=== PATIENT | female | born 1955 | race Caucasian/White ===

== ENCOUNTER 2016-12-22 07:00 | Inpatient (IN) | payer OTHER ==
[~2016-12-22] VITALS: Ht 167.6 cm; Wt 97.4 kg
[2017-01-10] MEDS ORDERED: GLUCTAB6 PO (09:40)
[2017-01-10] MEDS ORDERED: SOMA250T PO (09:40)
[2017-01-10] MEDS ORDERED: NORC5TAB PO (09:40)
[2017-01-10] MEDS ORDERED: OMEGCAP PO (09:40)
[2017-01-10] MEDS ORDERED: XANA1TAB2 PO (09:40)
[2017-01-26 06:00] VITALS: BP 146/93; PULSE 78; RESP 16; TEMP 98.2; O2SAT 95
[2017-01-26] MEDS ORDERED: DEXAMETHASONE SOD PHOS 4 MG/ML VIAL ONE (07:33)
[2017-01-26] MEDS ORDERED: VANCOMYCIN HCL 1000 MG VIAL ONE (07:34)
[2017-01-26] MEDS ORDERED: ceFAZolin 2 GM PREMIX 50 ML ONE (07:34)
[2017-01-26] MEDS ORDERED: ceFAZolin 2 GM PREMIX 50 ML IV SCH (07:45)
[2017-01-26] MEDS ORDERED: VANCOMYCIN 1000 MG/NS 250 ML (for <70 kg) IV SCH ×2 (07:45)
[2017-01-26] MEDS ORDERED: TRANEXAMIC ACID IV SCH (07:45)
[2017-01-26] MEDS ORDERED: POVIDONE IODINE 7.5% SCRUB 118 ML BOTTLE TOPICAL SCH (07:45)
[2017-01-26] MEDS ORDERED: DEXAMETHASONE SOD PHOS 20 MG/5 ML VIAL IV SCH (07:45)
[2017-01-26] MEDS ORDERED: ROPIVACAINE PERI-ARTICULAR INJECTION. P-ARTICULR SCH ×5 (07:45)
[2017-01-26] MEDS ORDERED: SODIUM CHLORIDE 0.9% IV SCH (07:45)
[2017-01-26] MEDS ORDERED: GENTAMICIN SULFATE 80 MG/2 ML VIAL ONE (08:15)
[2017-01-26] MEDS ORDERED: GENTAMICIN SULFATE 80 MG/2 ML VIAL IRRIGATION ONE (09:29)
[2017-01-26] MEDS: SODIUM CHLOR 0.9% 1000 ML INJ 1,000 ML IV SCH ×2 (10:20→21:56)
[2017-01-26] MEDS ORDERED: ALPRAZolam 1 MG TAB PO PRN (10:30)
[2017-01-26] MEDS ORDERED: ACETAMINOPHEN/HYDROcodone 325 MG/10 MG TAB PO PRN (10:30)
[2017-01-26] MEDS ORDERED: MAGNESIUM HYDROXIDE SUSP 30 ML CUP PO PRN (10:30)
[2017-01-26] MEDS ORDERED: BISACODYL 10 MG SUPP RECTAL PRN (10:30)
[2017-01-26] MEDS ORDERED: ALUMINUM/MAGNESIUM/SIMETH 30 ML CUP PO PRN (10:30)
[2017-01-26] MEDS ORDERED: NALOXONE HCL 0.4 MG/ML AMP IV PRN (10:30)
[2017-01-26] MEDS ORDERED: diphenhydrAMINE HCL 50 MG/ML VIAL IV PRN (10:30)
[2017-01-26] MEDS ORDERED: Post-op Orders (for Pharmacy) MISC XX ONE (10:30)
[2017-01-26] MEDS ORDERED: ONDANSETRON HCL 4 MG/2 ML VIAL IVP PRN (10:30)
[2017-01-26] MEDS ORDERED: MORPHINE SULFATE 4 MG/ML INJ IV PUSH PRN (10:30)
[2017-01-26] MEDS ORDERED: ZOLPIDEM TARTRATE 5 MG TAB PO PRN (10:30)
[2017-01-26] MEDS ORDERED: SODIUM CHLORIDE 0.9% FLUSH 5 ML FLUSH IVF PRN (10:30)
--- NOTE | 2017-01-26 10:30 | PD.OP ---
cc: Rafal Cristina MD Operative Report Date of Surgery: Jan 26, 2017 Preoperative Diagnosis: Right knee severe arthritis Postoperative Diagnosis: Same Procedure: Right total knee arthroplasty Anesthesia: Adductor canal block and general Surgeon: Rafal Cristina Wind Operations Manager(s): YANETH Acuna The surgical procedure was assisted by my Advanced Registered Nurse Practitioner. My OUTREACH WORKER presence was necessary throughout this case for the manipulation and positioning of the surgical extremity. My OUTREACH WORKER was assisting me throughout the duration of this procedure. The skill set of an Advance Registered Nurse Practitioner was medically necessary to complete this procedure. During the surgical case, the manager surgical was working at the back table and the Advance Registered Nurse Practitioner was directly assisting me. Operation and Findings: IMPLANTS: DePuy Attune: Patella: size 32. Femur, posterior stabilized size 6. Tibia, rotating platform size 5. Tibial insert, rotating platform, posterior stabilized size 5 mm thickness. ESTIMATED BLOOD LOSS: 100 cc TOURNIQUET TIME: 38 minutes at 250 mmHg pressure. JUSTIFICATION FOR PROCEDURE: The patient has end-stage osteoarthritis to the knee. There is an attached conservative measures pathway form in the chart that describes the nonoperative measures that were undertaken prior to consideration of surgical management. The patient understood the risks and benefits of surgical management. See my office notes for further details PROCEDURE: The patient was brought back to the operative theatre. Adequate anesthesia was obtained. The patient received intravenous vancomycin and Ancef. The lower extremity was prepped and draped in the usual sterile fashion.The leg was exsanguinated, the tourniquet was raised. A standard anterior incision was performed followed by medial parapatellar arthrotomy was performed. End-stage arthritis was identified. Osteotomy of the patella was performed. We drilled holes for the patella. We trialed the patella component. We placed an intramedullary guide into the distal femur. We ultimately resected 12 mm off of the distal femur in 5 degrees of valgus. The remnants of the ACL and PCL were resected. Osteotomy of the proximal tibia was performed, resecting 5 mm off of the medial side. This was done with 3 degrees of posterior slope using an extramedullary guide. The distal end of the guide was placed in the mid aspect of the ankle. The femur was sized, and four chamfer cuts were completed in 3 of external rotation. We then cut the central box in the distal femur to replace the PCL. We resected the remnants of the menisci and removed osteophytes off of the femur and tibia. We then trialed the knee. We punched the tibia for the keel, and then used standard technique to cement in components. Excess cement was removed. We trialed the knee again and the final polyethylene thickness was chosen to provide extension to 0 degrees, and flexion of 140 degrees to gravity. The ligaments were appropriately balanced. Lateral release was necessary to obtain excellent patellofemoral tracking. The tourniquet was released and adequate hemostasis was obtained. An intra- articular injection of a ropivacaine cocktail was injected. The posterior knee was inspected for excess cement, which was removed. The final polyethylene was put into position after thorough irrigation. We then closed deep fascia with a #2 Stratafix followed by skin with 2-0 Vicryl followed by radha. Postop plan is to weight-bear as tolerated. DVT prophylaxis will be performed with Ramon, BELIA walter, early mobilization, and Lovenox followed by aspirin. Rafal Cristina MD Jan 26, 2017 10:30
[2017-01-26] MEDS ORDERED: HYDR-3366 PO (10:31)
[2017-01-26] MEDS ORDERED: DO NOT ADM ANY ANTICOAGULANT DRUGS PRN (11:00)
[2017-01-26] MEDS ORDERED: fentaNYL CITRATE 250 MCG/5 ML AMP ONE (11:00)
[2017-01-26] MEDS ORDERED: *morphine SULFATE 8 MG/ML PERIprocedure ONLY ONE ×3 (11:03→12:01)
--- NOTE | 2017-01-26 11:29 | RADRPT ---
EXAM DATE/TIME: 01/26/2017 10:58 [facility] COMPARISON: No previous studies available for comparison. INDICATIONS : Post-op right knee. MEDICAL HISTORY : Hypertension. SURGICAL HISTORY : None. ENCOUNTER: Initial ACUITY: 1 day PAIN SCORE: 10/10 LOCATION: Right Knee. FINDINGS: AP and lateral views of the knee following arthroplasty reveals a prosthesis in anatomic alignment. F racture is not appreciated. Surgical drain is evident CONCLUSION: Status post total knee arthroplasty. Neymar Odonnell MD FACR Board Certified Radiologist. This report was verified electronically.
[2017-01-26] MEDS ORDERED: TRANEXAMIC ACID INJ 770 MG in SODIUM CHLORIDE 0.9% INJ 100 ML IV SCH (11:30)
[2017-01-26] MEDS ORDERED: BUPIVACAINE HCL PF 0.5% 30 ML VIAL NERV BLOCK ONE (11:53)
[2017-01-26 14:00] VITALS: BP 120/73; PULSE 81; RESP 18; TEMP 96.1; O2SAT 97
[2017-01-26] MEDS ORDERED: PROPOFOL 200 MG/20 ML AMP IV ONE (14:03)
[2017-01-26] MEDS ORDERED: PHENYLEPH/NS 1000 MCG/10 ML SYR IV ONE (14:04)
[2017-01-26] MEDS ORDERED: LACTATED RINGER'S 1000 ML INJ 1,000 ML IV ONE (14:04)
[2017-01-26] MEDS ORDERED: ONDANSETRON HCL 4 MG/2 ML VIAL IV PUSH ONE (14:04)
[2017-01-26] MEDS ORDERED: NEOSTIGMINE 3 MG/3 ML SYR IV ONE (14:04)
--- NOTE | 2017-01-26 16:03 | HHI.DCPOC ---
Discharge Care Plan Diagnosis: (1) Status post total knee replacement, right (2) Primary localized osteoarthrosis, lower leg Your Health Problems Are: Difficulty with ADL Goals to Promote Your Health * To prevent worsening of your condition and complications * To maintain your health at the optimal level Directions to Meet Your Goals Take your medications as prescribed Follow your dietary instruction Follow activity as directed Keep your appointments as scheduled Take your immunizations and boosters as scheduled If your symptoms worsen call your PCP, if no PCP go to Urgent Care Center or Emergency Room Smoking is Dangerous to Your Health. Avoid second hand smoke Call the 24-hour hour crisis hotline for domestic abuse at Dl Leary Jan 26, 2017 16:03
--- NOTE | 2017-01-26 16:04 | HHI.FF ---
Face to Face Verification Diagnosis: (1) Primary localized osteoarthrosis, lower leg (2) Status post total knee replacement, right Physical Therapy Gait training, Transfer training, bed to chair Knee: Total knee Right LE Weight Bearing: WB as tolerated Right LE Range of Motion: Active ROM Nursing Nursing: Gary teaching, Dressing changes Dressing Changes: Daily dressing change I have seen patient Elda Cheatham on 01/26/17. My clinical findings support the need for the requested home health care services because: Limited ability to care for self High risk of falls I certify that my clinical findings support that this patient is homebound because: Post-op weakness Unsteady gait/balance Dl Leary Jan 26, 2017 16:04
[2017-01-26] MEDS ORDERED: WALKER WHEELS/F1 MIS (16:05)
[2017-01-26] MEDS ORDERED: COMMODE 3-IN-11 MIS (16:05)
[2017-01-26] MEDS ORDERED: CPMMACHINE (16:05)
[2017-01-26 16:17] VITALS: BP 137/77; PULSE 76; RESP 17; TEMP 97.7
[2017-01-26] MEDS: ACETAMINOPHEN/HYDROcodone 325 MG/10 MG TAB PO PRN ×2 (17:51→21:55)
[2017-01-26] MEDS ORDERED: PROMETHAZINE HCL 25 MG TAB PO PRN (18:30)
[2017-01-26 20:40] VITALS: BP 171/78; PULSE 78; RESP 17; TEMP 96.9; O2SAT 96
[2017-01-26] MEDS: SODIUM CHLORIDE 0.9% FLUSH 5 ML FLUSH IVF SCH (21:00)
[2017-01-27 00:48] VITALS: BP 96/54; PULSE 78; RESP 17; TEMP 97; O2SAT 95
[2017-01-27 04:26] VITALS: BP 122/71; PULSE 77; RESP 17; TEMP 96.9; O2SAT 96
[2017-01-27 05:56] LABS: HEMATOCRIT 30.9 % (35.0-46.0); MEAN CELL VOLUME 88.6 FL (80.0-100.0); MEAN CORPUSCULAR HEMOGLOBIN 28.9 PG (27.0-34.0); MEAN CORPUSCULAR HGB CONC 32.7 % (32.0-36.0); PLATELET COUNT 142 TH/MM3 (150-450); RED BLOOD COUNT 3.49 MIL/MM3 (4.00-5.30); RED CELL DISTRIBUTION WIDTH 14.1 % (11.6-17.2); REVIEW FLAG FINAL; WHITE BLOOD COUNT 10.6 TH/MM3 (4.0-11.0)
[2017-01-27] MEDS: SODIUM CHLOR 0.9% 1000 ML INJ 1,000 ML IV SCH ×2 (06:25→15:43)
[2017-01-27] MEDS: ACETAMINOPHEN/HYDROcodone 325 MG/10 MG TAB PO PRN ×4 (06:42→17:58)
[2017-01-27] MEDS ORDERED: DEXAMETHASONE SOD PHOS 20 MG/5 ML VIAL IV ONE (07:45)
[2017-01-27 08:00] VITALS: BP 129/61; PULSE 80; RESP 18; TEMP 99.3; O2SAT 95
[2017-01-27] MEDS: SODIUM CHLORIDE 0.9% FLUSH 5 ML FLUSH IVF SCH (08:01)
[2017-01-27 08:53] VITALS: O2SAT 99
[2017-01-27] MEDS ORDERED: ENOXAPARIN SODIUM 40 MG/0.4 ML SYRINGE SQ SCH (10:00)
[2017-01-27 12:00] VITALS: BP 135/76; PULSE 76; RESP 18; TEMP 97.1; O2SAT 93
--- NOTE | 2017-01-27 12:05 | PD.ORT.PN ---
Subjective Post Op Day #: 1 Subjective Remarks Patient OOB in chair with minimal pain to the right knee. Patient requesting to go home today. Objective Vitals Vital Signs Date Time Temp Pulse Resp B/P Pulse Ox O2 Delivery O2 Flow Rate FiO2 01/27/17 08:53 99 21 01/27/17 08:00 99.3 80 18 129/61 95 01/27/17 07:01 Room Air 01/27/17 04:26 96.9 77 17 122/71 96 01/27/17 00:48 97.0 78 17 96/54 95 01/26/17 20:40 96.9 78 17 171/78 96 01/26/17 16:17 97.7 76 17 137/77 01/26/17 14:00 96.1 81 18 120/73 97 01/26/17 13:48 Nasal Cannula 2.00 01/26/17 13:30 98.4 01/26/17 13:00 76 17 109/69 98 Nasal Cannula 2 01/26/17 12:45 89 17 111/73 98 Nasal Cannula 2 01/26/17 12:30 90 17 140/74 98 Nasal Cannula 2 01/26/17 12:15 92 17 139/74 98 Nasal Cannula 2 01/26/17 12:00 91 17 139/78 98 Nasal Cannula 2 I/O 01/26/17 01/26/17 01/26/17 01/27/17 01/27/17 01/27/17 07:00 15:00 23:00 07:00 15:00 23:00 Intake Total 1450 ml 240 ml 240 ml Output Total 700 ml 450 ml 500 ml Balance 750 ml -210 ml -260 ml Intake Oral 240 ml 240 ml IV Total 250 ml Other 1200 ml Output Urine Total 700 ml 450 ml 500 ml # Bowel Movements 0 0 Result Diagram: 01/27/17 0508 Procedures Right TKA Objective Remarks The patient's dressing was changed today with scant serosanguineous drainage. Incision is well approximated with surgical clips intact. No redness or s/s of infection. EHL/TA/G intact. 2+ pedal pulse. No calf tenderness or swelling. Minimal swelling. + SILT. Assessment & Plan Ortho Post Op Day #: 1 Problem List: Assessment and Plan POD #1: Right TKA 1. WBAT RLE 2. Lovenox followed by ASA for DVT prophylaxis 3. Ice to the right knee PRN 4. Stable for discharge home with home health today. Dl Leary Jan 27, 2017 12:05
[2017-01-27 16:00] VITALS: BP 144/78; PULSE 76; RESP 18; TEMP 98.9; O2SAT 93
[2017-01-27] MEDS ORDERED: DOCUSATE SODIUM 100 MG CAP PO SCH (21:00)
[2017-01-27] MEDS ORDERED: MULTIVITAMINS/MINERALS THERAPEUTIC TAB PO SCH (21:00)
--- NOTE | 2017-01-31 13:49 | HHI.DS ---
Discharge Summary Admission Date Jan 26, 2017 at 05:44 Discharge Date: Jan 27, 2017 Admitting Diagnosis Primary localized osteoarthritis, lower leg Status post total knee replacement, RIGHT Diagnosis: (1) Primary localized osteoarthrosis, lower leg Diagnosis: Principal (2) Status post total knee replacement, right Diagnosis: Principal Procedures Right TKA Brief History This is a 61 year old female patient with severe osteoarthritis of the RIGHT knee. CBC/BMP: 01/27/17 0508 PE at Discharge The patient's dressing was changed today with scant serosanguineous drainage. Incision is well approximated with surgical clips intact. No redness or s/s of infection. EHL/TA/G intact. 2+ pedal pulse. No calf tenderness or swelling. Minimal swelling. + SILT. Hospital Course The patient was admitted to the hospital with severe osteoarthritis of the RIGHT knee to have a RIGHT total knee arthroplasty. The patient's surgery went well with no complications. The patient is weightbearing as tolerated on the RIGHT lower extremity. The patient is on a regular diet. The patient was placed on Lovenox followed by aspirin for DVT prophylaxis. The patient was discharged home with home health. The patient will follow up with Dr. Cristina in 1-2 weeks. Pt Condition on Discharge: Good Discharge Disposition: Disch w/ Home Health Serv Discharge Instructions Diet Instructions: As Tolerated, No Restrictions Activities You Can Perform: Weight Bearing as Ruby Activities to Avoid: Strenuous Activity Follow up Referrals: Orthopedics with Rafal Cristina MD SNF/[facility]/ with [facility] New Medications: Commode 3-in-1 (Commode 3-in-1) 1 Mis Mis 1 EA .ROUTE DIRECTED #1 Ref 0 EA CPM-Continuous Passive Motion Machine (CPM-Continuous Passive Motion Machine) 1 Ea Device 1 EA .ROUTE DIRECTED #1 Ref 0 EA Hydrocodone-Acetaminophen ([place]) 10-325 Mg Tab 1-2 TAB PO Q4H PRN PAIN #60 Ref 0 TAB Walker with Front Wheels (Walker with Front Wheels) 1 Mis Mis 1 EA .ROUTE DIRECTED #1 Ref 0 EA Continued Medications: Alprazolam (Xanax) 1 Mg Tab 1 MG PO HS PRN ANXIETY Ref 0 TAB Carisoprodol ([place]) 250 Mg Tab Unknown Dose PO QID PRN PAIN Ref 0 TAB Discontinued Medications: Fish Oil-Cholecalciferol ([place]-3 Fish Oil/Vitamin) 1,000-1,000 Mg Cap 1 CAP PO DAILY Nutritional Supplement Ref 0 CAP Isitqtzlflg-Uuelgrzbxwz-Eeu C- (Glucosamine Chondroitin) 1 Tab Tab Unknown Dose PO BID Hydrocodone-Acetaminophen ([place]) 5-325 mg Tab 0.5 TAB PO Q4H PRN PAIN Ref 0 TAB Dl Leary January 31, 2017 13:49
== END 2017-01-27 18:36 | disposition home health service (06) | DRG 470 ==
LOC: HSDI 01-26 05:44 → N06A 01-26 13:54
PROVIDERS: ADMIT Orthopaedic Surgery; ATTEND Orthopaedic Surgery
PROC: 3E0T3BZ Introduction of Anesthetic Agent into Peripheral Nerves and Plexi, Percutaneous Approach (ICD-10-PCS; 2017-01-26)
PROC: 0SRC0J9 Replacement of Right Knee Joint with Synthetic Substitute, Cemented, Open Approach (ICD-10-PCS; principal; 2017-01-26 08:35)
DX: M17.9 Osteoarthritis of knee, unspecified (principal)
CPT/HCPCS: 73560; 85027; 86850; 86900; 86901; 94150; C1776; J0690; J1100; J1580; J1650; J2270; J2370; J2405; J2710; J3010; J3370; J7030; J7120; L1830; Q0169

== ENCOUNTER → 2017-01-10 | Outpatient (CLI) | payer OTHER ==
[~2017-01-10] MED LIST: COMMODE 3-IN-11 MIS; CPMMACHINE; GLUCTAB6 PO; HYDR-3366 PO; NORC5TAB PO; OMEGCAP PO; SOMA250T PO; WALKER WHEELS/F1 MIS; XANA1TAB2 PO
[2017-01-10 09:52] LABS: AUTOMATED NEUTROPHIL # 4.4 TH/MM3 (1.8-7.7); BASOPHIL # 0.1 TH/MM3 (0-0.2); BASOPHIL % 1.2 % (0.0-2.0); EOSINOPHIL # 0.3 TH/MM3 (0-0.4); HEMATOCRIT 43.2 % (35.0-46.0); HEMO FLAGS DIFF FINAL; LYMPH % 18.6 % (9.0-44.0); LYMPHOCYTE # 1.2 TH/MM3 (1.0-4.8); MEAN CELL VOLUME 88.1 FL (80.0-100.0); MEAN CORPUSCULAR HEMOGLOBIN 29.7 PG (27.0-34.0); MEAN CORPUSCULAR HGB CONC 33.7 % (32.0-36.0); MONO % 7.4 % (0.0-8.0); NEUT % 68.8 % (16.0-70.0); PLATELET COUNT 177 TH/MM3 (150-450); RED CELL DISTRIBUTION WIDTH 14.3 % (11.6-17.2); WHITE BLOOD COUNT 6.4 TH/MM3 (4.0-11.0)
[2017-01-10 09:54] LABS: BLOOD, URINE NEG (NEG); COMMENT (UR) CULT NOT INDICATED; CULTURE IF INDICATED CULT NOT INDICATED; GLUCOSE,URINE NEG (NEG); KETONE, URINE NEG (NEG); MUCUS URINE FEW /lpf (OCC); NITRITE,URINE NEG (NEG); PH, URINE 6.5 (5.0-8.5); URINE COLOR LIGHT-YELLOW (YELLW/STRAW)
[2017-01-10 10:01] LABS: APTT (PATIENT) 26.9 SEC (24.3-30.1); PROTHROMBIN TIME - PATIENT 10.8 SEC (9.8-11.6)
[2017-01-10 10:16] LABS: WESTERGREN SEDIMENTATION RATE 5 mm/hr (0-30)
[2017-01-10 10:17] LABS: ALKALINE PHOSPHATASE 143 U/L (45-117); ALT (GPT) 25 U/L (10-53); ANION GAP 6 MEQ/L (5-15); AST (GOT) 18 U/L (15-37); BICARBONATE 31.1 MEQ/L (21.0-32.0); BLOOD UREA NITROGEN 10 MG/DL (7-18); CHLORIDE 103 MEQ/L (98-107); GLOMERULAR FILTRATION RATE 86 ML/MIN (>89); GLUCOSE,FASTING 73 MG/DL (74-99); POTASSIUM 4.3 MEQ/L (3.5-5.1); SODIUM (NA) 140 MEQ/L (136-145); TOTAL BILIRUBIN ADULT 0.4 MG/DL (0.2-1.0)
--- NOTE | 2017-01-10 12:25 | RADRPT ---
EXAM DATE/TIME: 01/10/2017 12:11 [facility] COMPARISON: No previous studies available for comparison. INDICATIONS : Evaluate for pneumonia, pneumothorax or communicable disease. Pre op knee replacement. MEDICAL HISTORY : Hypertension. SURGICAL HISTORY : None. ENCOUNTER: Initial ACUITY: 1 day PAIN SCORE: 0/10 LOCATION: Bilateral chest FINDINGS: Aorta is tortuous and calcified. No evidence of pneumothorax. Heart size normal. Degenerative changes of the spine are seen and dextroscoliosis of the upper lumbar spine noted. Mild hyperinflation. CONCLUSION: No acute disease. Ash Ruth MD on January 10, 2017 at 12:24 Board Certified Radiologist. This report was verified electronically.
--- NOTE | 2017-01-10 14:05 | EKG ---
Date Performed: 01/10/2017 Time Performed: 09:29:09 PTAGE: 61 years EKG: Sinus rhythm Since previous tracing, no significant change noted NORMAL ECG PREVIOUS TRACING : 03/24/05 16.05.07 DOCTOR: Rebecca Morales Interpretating Date/Time 01/10/2017 14:03:45
== END ==
LOC: CPRE 09:06
PROVIDERS: ATTEND Orthopaedic Surgery
DX: Z01.810 Encounter for preprocedural cardiovascular examination (principal); Z01.811 Encounter for preprocedural respiratory examination; Z01.812 Encounter for preprocedural laboratory examination; M25.50 Pain in unspecified joint; M17.11 Unilateral primary osteoarthritis, right knee
CPT/HCPCS: 36415; 71020; 80053; 81001; 85025; 85610; 85652; 85730; 93005